=== PATIENT | female | born 1945 | race Caucasian/White ===

== ENCOUNTER 2022-04-19 10:04 | Outpatient (CLI) | payer MEDICARE, OTHER | END 2022-04-19 10:05 | disposition home or self-care (01) | LOC: CSHMAMMO 10:04 | PROVIDERS: ATTEND Internal Medicine | DX: Z13.820 Encounter for screening for osteoporosis (principal); Z78.0 Asymptomatic menopausal state; M85.851 Other specified disorders of bone density and structure, right thigh; M85.852 Other specified disorders of bone density and structure, left thigh | CPT/HCPCS: 77080 ==

== ENCOUNTER 2024-01-30 08:12 | Outpatient (CLI) | payer MEDICARE, OTHER | END 2024-01-30 08:13 | disposition home or self-care (01) | LOC: CSHMAMMO 08:12 | PROVIDERS: ATTEND Nurse Practitioner | DX: M85.851 Other specified disorders of bone density and structure, right thigh (principal); M85.852 Other specified disorders of bone density and structure, left thigh; Z78.0 Asymptomatic menopausal state | CPT/HCPCS: 77080 ==

== ENCOUNTER 2024-04-08 12:45 | Outpatient (CLI) | payer MEDICARE, OTHER | END 2024-04-08 12:46 | disposition home or self-care (01) | LOC: CSHMAMMO 12:45 | PROVIDERS: ATTEND Internal Medicine | DX: Z12.31 Encounter for screening mammogram for malignant neoplasm of breast (principal) | CPT/HCPCS: 77063; 77067 ==

== ENCOUNTER 2024-05-19 11:20 | Outpatient (CLI) | payer MEDICARE, OTHER | END 2024-05-19 11:21 | disposition home or self-care (01) | LOC: CSHRAD 11:20 | PROVIDERS: ATTEND Nurse Practitioner | DX: B34.9 Viral infection, unspecified (principal); K44.9 Diaphragmatic hernia without obstruction or gangrene; R91.8 Other nonspecific abnormal finding of lung field | CPT/HCPCS: 36415; 71046; 80048; 81001; 83880; 85025; 87635 ==